=== PATIENT | female | born 2000 | race Caucasian/White ===

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

== ENCOUNTER 2018-10-08 20:16 | Inpatient (IN) | payer MEDICAID ==
[~2018-10-08] VITALS: Ht 165.1 cm; Wt 66.3 kg
[2018-10-10 12:46] VITALS: BP 95/63
== END 2018-10-10 17:32 | disposition home or self-care (01) | DRG 917 ==
LOC: MERGE 20:16 → EDBD 20:16 → ED 21:30 → EDIP 23:00 → 4EST 10-09
PROVIDERS: ADMIT Internal Medicine; ATTEND Internal Medicine
PROC: 0T9B70Z Drainage of Bladder with Drainage Device, Via Natural or Artificial Opening (ICD-10-PCS; principal; 2018-10-09)
DX: T42.4X1A Poisoning by benzodiazepines, accidental (unintentional), initial encounter (principal); G92 Toxic encephalopathy; F10.129 Alcohol abuse with intoxication, unspecified; Y92.89 Other specified places as the place of occurrence of the external cause
CPT/HCPCS: 36415; 70450; 71045; 80048; 80053; 80076; 80307; 81001; 83930; 84443; 84703; 85025; 85610; 93005; 99285; G0378; J7030; J7040

== ENCOUNTER 2018-10-15 14:08 | Emergency (ER) | payer MEDICAID ==
[~2018-10-15] VITALS: Ht 160 cm; Wt 70.0 kg
[2018-10-15 19:41] VITALS: BP 112/68
== END 2018-10-15 19:44 | disposition home or self-care (01) ==
LOC: ED 15:25
DX: F15.10 Other stimulant abuse, uncomplicated (principal); F22 Delusional disorders; F60.0 Paranoid personality disorder
CPT/HCPCS: 36415; 80053; 80307; 81025; 85025; 99283

== ENCOUNTER 2019-01-25 20:13 | Emergency (ER) | payer MEDICAID ==
[~2019-01-25] VITALS: Ht 157.5 cm; Wt 65.0 kg
[2019-01-25 20:16] VITALS: BP 124/67
--- NOTE | 2019-01-25 20:34 | NUR ---
PT PLACED IN A SECURE ROOM BUT WOULD NOT FOLLOW DIRECTION FOR GIVING HER CELL PHONE TO BE SECURED AND REQUIRED 4 POINT RESTRAINTS. ALL PERSONAL ITEMS ARE NOW SECURE AND A TRIAL FREE FRO RESTRAINTS PERIOD WILL OCCURE AT 2049
--- NOTE | 2019-01-25 20:50 | NUR ---
PT REFUSED TO CO-OPERATE AND HAS BEEN LEFT IN RESTRAINTS.
--- NOTE | 2019-01-25 21:46 | NUR ---
TELEPSYCH ORDERED. REG UNABLE TO CONFIRM PTS INSURANCE AT THIS TIME DUE TO PTS UNCOOPERATIVENESS.
--- NOTE | 2019-01-25 22:25 | NUR ---
REG AT BEDSIDE ATTEMPTING TO ACQUIRE INSURANCE INFO
== END 2019-01-25 23:15 | disposition home or self-care (01) ==
LOC: ED 22:26
DX: F41.1 Generalized anxiety disorder (principal); F17.210 Nicotine dependence, cigarettes, uncomplicated
CPT/HCPCS: 99284

== ENCOUNTER 2020-09-10 16:15 | Emergency (ER) | payer MEDICAID ==
[~2020-09-10] VITALS: Ht 165.1 cm; Wt 70.0 kg
--- NOTE | 2020-09-10 16:34 | NUR ---
PT UNDRESSED, ONLY BELONGINGS, TANK AND STRETCH PANTS PLACED IN ONE BELONGING BAG. ROOM SECURED WITH GARAGE DOORS DOWN. SITTER AT DOORWAY. PULSE OX AND BP CUFF IN PLACE WITH PORTABLE MONITOR.
--- NOTE | 2020-09-10 17:35 | NUR ---
PT SLEEPING, NAD. SITTER AT DOORWAY.
[2020-09-10 18:06] LABS: BASOPHILS % (AUTO) 1 % (0-1); EOSINOPHILS % (AUTO) 0 % (1-7); LYMPHOCYTES % (AUTO) 19 % (22-44); MEAN CORPUSCULAR HEMOGLOBIN 29.2 pg (27.0-34.8); MEAN CORPUSCULAR HGB CONC 34.1 g/dL (32.4-35.8); MEAN PLATELET VOLUME 7.6 fL (7.4-10.4); MONOCYTES % (AUTO) 5 % (2-9); NEUTROPHILS % (AUTO) 75 % (42-75); PLATELET COUNT 374 x10^3/uL (130-400); RED BLOOD COUNT 4.51 x10^6/uL (3.82-5.3)
[2020-09-10 18:18] LABS: ALANINE AMINOTRANSFERASE 21 U/L (12-78); ALBUMIN 3.2 g/dL (3.4-5.0); ANION GAP 4 mmol/L (5-15); CALCIUM 8.8 mg/dL (8.5-10.1); CHLORIDE 110 mmol/L (98-107); CREATININE 0.76 mg/dL (0.55-1.02)
[2020-09-10 18:19] LABS: SALICYLATE LEVEL < 1.7 mg/dL (2.8-20.0)
[2020-09-10 18:21] LABS: ALKALINE PHOSPHATASE 61 U/L (45-117); BILIRUBIN,TOTAL 0.4 mg/dL (0.2-1.0); TOTAL PROTEIN 8.1 g/dL (6.4-8.2)
--- NOTE | 2020-09-10 18:30 | NUR ---
PT SLEEPING, NAD, SITTER AT DOORWAY.
--- NOTE | 2020-09-10 18:54 | NUR ---
REPORT FROM SEUN MACIAS
--- NOTE | 2020-09-10 18:57 | NUR ---
REPORT TO CICI MACIAS.
--- NOTE | 2020-09-10 19:16 | NUR ---
REPORT FROM CICI MACIAS, PT CARE TRANSFERRED AT THIS TIME. PT RESTING ON RANJITH BEATTY, ROOM SECURED, SITTER IN LINE OF SIGHT, PAULINE.
--- NOTE | 2020-09-10 19:20 | NUR ---
PT MOVED FROM ED ROOM 38 TO ED ROOM 3. PT BELONGINGS PLACED IN APPROPRIATE LOCKER. PT DENIES ANY NEEDS AT THIS TIME. REPORT GIVEN TO RITESH MACIAS.
--- NOTE | 2020-09-10 20:03 | NUR ---
Patient is resting comfortably in bed. Bed in lowest, rails engaged, call light on lap. ROOM SECURED, SITTER IN LINE OF SIGHT. WCTM/L2K/PSYCH RE-EVAL IN AM PER GEMA ROSAS.
--- NOTE | 2020-09-10 21:58 | NUR ---
PT RESTING IN ROOM ON RIGHT SIDE, NAD, APPEARS COMFORTABLE, NO CHANGE IN CONDITION, ROOM SECURED, SITTER IN LINE OF SIGHT, SCOTTTM.
--- NOTE | 2020-09-10 23:29 | NUR ---
PT MVOED TO HOSPITAL BED FOR COMFORT, NAD, PROVIDED SPRITE FOR COMFORT, STATES SHE IS UNABLE TO URINATE AT THIS TIME. Patient is resting comfortably in bed. Bed in lowest, rails engaged, call light on lap. ROOM SECURED, SITTER IN LINE OF SIGHT. NO CHANGE IN CONDITION. WCTM.
--- NOTE | 2020-09-11 00:47 | NUR ---
Patient is resting comfortably in bed, eyes closed, even and unlabored respirations at this time. Bed in lowest, rails engaged, call light on lap. ROOM SECURED, SITTER IN LINE OF SIGHT. [facility].
--- NOTE | 2020-09-11 01:33 | NUR ---
pt resting on hospital bed, nad, eyes closed, even and unlabored respirations, bed in lowest, lights dimmed for comfort, room secured, sitter in line of sight, wctm.
--- NOTE | 2020-09-11 03:30 | NUR ---
PT RESTING ON HOSPITAL BED UNDER WARM BLANKETS, EYES CLOSED, NAD, APPEARS COMFORTABLE, BED IN LOWEST, ROOM SECURED, SITTER IN LINE OF SIGHT, WCTM. L2K
--- NOTE | 2020-09-11 05:06 | NUR ---
PT RESTING ON HOSPITAL BED, EYES CLOSED, NAD, APPEARS COMFORTABLE, BED IN LOWEST, ROOM SECURED, SITTER IN LINE OF SIGHT, BREAKFAST TRAY ORDERED, WCTM. L2K
--- NOTE | 2020-09-11 06:36 | NUR ---
PT MOVED TO HOSPITAL BED, RESTING COMFORTABLY, NAD, BED IN LOWEST, RAILS ENGAGED, ROOM SECURED, SITTER IN LINE OF SIGHT, WCTM. L2K
--- NOTE | 2020-09-11 06:54 | NUR ---
REPORT TO MIQUEL MACIAS, PT CARE TRANSFERRED AT THIS TIME.
--- NOTE | 2020-09-11 07:13 | NUR ---
PATIENT RESTING IN HOSPITAL BED WITH EYES CLOSED, RESP EVEN AND UNLABORED, SUICIDE PRECAUTIONS IN PLACE, SITTER IN LINE OF SIGHT. BREAKFAST TRAY ORDERED.
[2020-09-11 08:42] VITALS: BP 101/64
--- NOTE | 2020-09-11 08:44 | NUR ---
BREAKFAST TRAY PROVIDED, VSS, PATIENT DENIES PAIN, DENIES SI, CALM AND COOPERATIVE. SUICIDE PRECAUTIONS IN PLACE, SITTER IN LINE OF SIGHT. PATIENT EDUCATED ON NEED FOR URINE SAMPLE.
--- NOTE | 2020-09-11 09:44 | NUR ---
PATIENT RESTING IN HOSPITAL BED, EYES CLOSED, RESP EVEN AND UNLABORED, SUICIDE PRECAUTIONS IN PLACE, SITTER IN LINE OF SIGHT.
--- NOTE | 2020-09-11 10:38 | NUR ---
LUNCH TRAY ORDERED.
--- NOTE | 2020-09-11 11:16 | NUR ---
PATIENT STILL REFUSING TO LEAVE URINE SAMPLE.
[2020-09-11] MEDS ORDERED: OLANZAPINE ODT 10MG ONE (11:47)
--- NOTE | 2020-09-11 11:54 | NUR ---
PATIENT MEDICATED PER eMAR, IT TOOK THIS RN SEVERAL TIMES OF CALLING PATIENT NAME FOR HER TO OPEN HER EYES, SUICIDE PRECAUTIONS IN PLACE, SITTER IN LINE OF SIGHT.
[2020-09-11] MEDS ORDERED: OLANZAPINE ODT 10MG PO SCH (12:00)
[2020-09-11] MEDS ORDERED: OLANZAPINE 10 MG INJ IM PRN (12:00)
--- NOTE | 2020-09-11 12:07 | NUR ---
LUNCH TRAY PROVIDED, SUICIDE PRECAUTIONS IN PLACE, SITTER IN LINE OF SIGHT.
--- NOTE | 2020-09-11 13:14 | NUR ---
BREAK RN: PT SLEEPING ON HOSPITAL BED W/ GARAGE DOORS DOWN AND SITTER OUTSIDE ROOM FOR SAFETY. CHEST RISE AND FALL OBSERVED. KARLEE.
--- NOTE | 2020-09-11 13:20 | NUR ---
BREAK RN: GENTLY WOKE PT TO REQUEST URINE SAMPLE, PT SAT UP IN BED AND STATED THAT SHE DOES NOT HAVE TO GO RIGHT NOW. PT ENCOURAGED TO TRY, BUT PT REFUSING AT THIS TIME.
--- NOTE | 2020-09-11 13:50 | NUR ---
URINE COLLECTED AND WALKED TO LAB.
[2020-09-11 14:07] LABS: MICROSCOPIC INDICATED
[2020-09-11 14:17] LABS: AMPHETAMINE SCREEN, URINE Positive (Negative); BARBITURATE SCREEN, URINE Negative (Negative); BENZODIAZEPINE SCREEN, URINE Positive (Negative); CANNABINOID SCREEN, URINE Negative (Negative); COCAINE SCREEN, URINE Negative (Negative); METHADONE SCREEN, URINE Negative (Negative); OPIATE SCREEN, URINE Negative (Negative)
--- NOTE | 2020-09-11 14:57 | NUR ---
PATIENT RESTING IN HOSPITAL BED WITH EYES CLOSED, RESP EVEN AND UNLABORED, SUICIDE PRECAUTIONS IN PLACE, SITTER IN LINE OF SIGHT. [facility]
--- NOTE | 2020-09-11 15:16 | NUR ---
SPOKE WITH QAMAR AT [facility], DR. DOMINGUEZ WILL ACCEPT PATIENT. REQUESTING CALL BACK WITH [facility] FOR PATIENT ARRIVAL.
--- NOTE | 2020-09-11 15:16 | NUR ---
ACCEPTED BY [facility] AT THIS TIME.
--- NOTE | 2020-09-11 15:49 | NUR ---
TRANSPORT ARRANGED THROUGH [facility] FOR PT TO TRANSPORT TO [facility].
--- NOTE | 2020-09-11 15:54 | NUR ---
[facility] NOTIFIED THAT ETA IS [phone].
--- NOTE | 2020-09-11 18:06 | NUR ---
PATIENT TRANSFERRED TO [facility]IA AMBULANCE WITH 2 PARAMEDICS, PATIENT BELONGINGS BAG TAKEN FROM LOCKED CABINET AND GIVEN TO EMS. PATIENT AMBULATED TO AMBULANCE WITH STEADY GAIT.
== END 2020-09-11 18:07 ==
LOC: ED 09-11 10:24 → MERGE 09-11 10:24 → ED 09-11 18:07
DX: F98.9 Unspecified behavioral and emotional disorders with onset usually occurring in childhood and adolescence (principal); R41.82 Altered mental status, unspecified; F41.1 Generalized anxiety disorder; F19.10 Other psychoactive substance abuse, uncomplicated; R94.31 Abnormal electrocardiogram [ECG] [EKG]
CPT/HCPCS: 36415; 70450; 80053; 80299; 80307; 80320; 80329; 81001; 84703; 85025; 87077; 87086; 87186; 93005; 99285; G0480